=== PATIENT | female | born 1960 | race Caucasian/White ===

== ENCOUNTER → 2016-11-29 | Outpatient (REF) | payer OTHER ==
[~2016-11-29] MED LIST: COLA100C2 PO; DIOV80TA PO; GABAPOW41 PO; JANUVIA PO; METFORMIN PO; OMEPPOW18 PO; PERC5TAB8 PO; SIMV40TA2 OR; VITAMIN B12 PO
[2016-11-29 12:52] LABS: PERCENT SATURATION 10.8 % (13.2-37.4)
== END ==
LOC: M LAB REF 11:58
PROVIDERS: ATTEND Internal Medicine
DX: D64.9 Anemia, unspecified (principal)

== ENCOUNTER → 2017-12-29 | Outpatient (REF) | payer OTHER ==
[2017-12-29 14:47] LABS: IRON (FE) 52 UG/DL (50-170); PERCENT SATURATION 14.4 % (13.2-45.0); TOTAL IRON BINDING CAPACITY 361 UG/DL (250-450)
== END ==
LOC: M LAB REF 13:32
DX: D50.9 Iron deficiency anemia, unspecified (principal)

== ENCOUNTER → 2018-01-19 | Outpatient (CLI) | payer OTHER ==
[2018-01-19 12:36] LABS: ANION GAP 7 MEQ/L (8-16); BLOOD UREA NITROGEN 11 MG/DL (7-18); CALCIUM LEVEL 9.5 MG/DL (8.5-10.1); CARBON DIOXIDE LEVEL 28 MEQ/L (21-32); CHLORIDE LEVEL 105 MEQ/L (98-107); CREATININE FOR GFR 1.37 MG/DL (0.55-1.30); GLOMERULAR FILTRATION RATE 42.3 (>51); GLUCOSE, FASTING 119 MG/DL (70-100); POTASSIUM SERUM 4.5 MEQ/L (3.5-5.1); SODIUM LEVEL 140 MEQ/L (136-145)
== END ==
LOC: M LAB 11:16
DX: Z01.812 Encounter for preprocedural laboratory examination (principal); I10 Essential (primary) hypertension; E11.9 Type 2 diabetes mellitus without complications
CPT/HCPCS: 93005

== ENCOUNTER → 2018-05-21 | Outpatient (REF) | payer OTHER ==
[2018-05-21 11:39] LABS: TOTAL PROTEIN 6.8 GM/DL (6.4-8.2)
[2018-05-22 14:37] LABS: ALBUMIN 3.75 GM/DL (3.29-5.55); ALBUMIN % 55.2 % (55.8-66.1); ALPHA-1-GLOBULIN % 5.3 % (2.9-4.9); ALPHA-1-GLOBULINS 0.36 GM/DL (0.17-0.41); ALPHA-2-GLOBULINS 0.89 GM/DL (0.42-0.99); ALPHA-2-GLOBULINS % 13.1 % (7.1-11.8); BETA-1-GLOBULINS % 7.3 % (4.7-7.2); BETA-2-GLOBULINS 0.41 GM/DL (0.19-0.55); GAMMA GLOBULIN % 13.1 % (11.1-18.8); GAMMA GLOBULINS 0.89 GM/DL (0.65-1.58)
== END ==
LOC: M LAB REF 10:38
DX: D64.9 Anemia, unspecified (principal)
CPT/HCPCS: 84165

== ENCOUNTER → 2018-08-28 | Outpatient (REF) | payer OTHER ==
[2018-08-28 13:20] LABS: IRON (FE) 48 UG/DL (50-170); PERCENT SATURATION 13.6 % (13.2-45.0); TOTAL IRON BINDING CAPACITY 353 UG/DL (250-450)
== END ==
LOC: M LAB REF 12:17
DX: D64.9 Anemia, unspecified (principal)
CPT/HCPCS: 83550

== ENCOUNTER → 2019-05-03 | Outpatient (CLI) | payer OTHER ==
[2019-05-03 11:42] LABS: CALCIUM LEVEL 9.3 MG/DL (8.5-10.1); CREATININE FOR GFR 1.44 MG/DL (0.55-1.30); GLOMERULAR FILTRATION RATE 39.8 (>51); POTASSIUM SERUM 4.1 MEQ/L (3.5-5.1)
--- NOTE | 2019-05-04 19:49 | ECGEPIP ---
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
== END ==
LOC: M LAB 09:37
PROVIDERS: ATTEND Orthopaedic Surgery
DX: I10 Essential (primary) hypertension (principal)

== ENCOUNTER → 2019-08-31 | Outpatient (CLI) | payer OTHER ==
[2019-08-31 09:08] LABS: HEMATOCRIT 29.4 % (36.0-47.0); HEMOGLOBIN 9.4 g/dl (12.0-15.5); MEAN CORPUSCULAR HEMOGLOBIN 28.2 pg (27.0-33.0); MEAN CORPUSCULAR VOLUME 88.3 fl (80.0-96.0); PLATELET COUNT, AUTOMATED 257 10^3/uL (150-450); RED BLOOD COUNT 3.33 10^6/uL (4.00-5.40); WHITE BLOOD COUNT 7.2 10^3/uL (4.0-10.0)
--- NOTE | 2019-08-31 09:20 | REP ---
Clinical: Hypertension . Comparison: 08/01/2016 . Technique: PA and lateral. Findings: The mediastinum and cardiac silhouette are normal. The lung menendez are clear and without acute consolidation, effusion, or pneumothorax. The skeletal structures are intact and normal. Impression: 1. No acute cardiopulmonary process. Electronically Signed by Epifanio Dunaway MD 08/31/2019 09:12 A
[2019-08-31 09:28] LABS: INR 1.09; PROTHROMBIN TIME 13.8 SECONDS (11.8-14.0)
[2019-08-31 09:30] LABS: ERYTHROCYTE SEDIMENTATION RATE 48 mm/hr (0-30)
[2019-08-31 09:34] LABS: ALBUMIN 3.3 GM/DL (3.2-5.2); BILIRUBIN,TOTAL 0.3 MG/DL (0.2-1.0); CALCIUM LEVEL 9.1 MG/DL (8.5-10.1); CREATININE FOR GFR 1.5 MG/DL (0.55-1.30); POTASSIUM SERUM 4.3 MEQ/L (3.5-5.1); TOTAL PROTEIN 6.6 GM/DL (6.4-8.2)
--- NOTE | 2019-08-31 22:17 | ECGEPIP ---
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 NO MANIFESTATION OF PRIOR INFERIOR WALL INFARCT Electronically Signed on 08-31-2019 22:16:38 EST by Zev Padilla
== END ==
LOC: M LAB 08:31
PROVIDERS: ATTEND Orthopaedic Surgery
DX: I10 Essential (primary) hypertension (principal); Z01.818 Encounter for other preprocedural examination

== ENCOUNTER 2019-09-30 06:41 | Inpatient (IN) | payer OTHER ==
--- NOTE | 2019-09-27 14:29 | HPE ---
DATE OF ADMISSION: 09/30/2019 ATTENDING PHYSICIAN: Dr. Chepe Rao CHIEF COMPLAINT: Right knee pain and stiffness. HISTORY: This is a pleasant 59-year-old female patient with progressively worsening right knee pain and stiffness that has failed to improve with conservative treatment. She has been consented for a right total knee arthroplasty with Dr. Chepe Rao. ALLERGIES: - NARCOTICS MEDICAL PROBLEMS: Type 2 diabetes, morbid obesity, hypercholesterolemia, diabetic neuropathy, hypertension, anemia. CURRENT MEDICATIONS: Vitamin B12 1000 mcg one p.o. daily, vitamin D3 1000 units one p.o. daily, ferrous gluconate 324 mg one p.o. daily, atorvastatin calcium 40 mg one p.o. daily, gabapentin 300 mg one p.o. daily, Januvia 100 mg as directed, omeprazole 40 mg, Diovan/HCTZ 160/25 mg, metformin 500 mg. PAST SURGICAL HISTORY: Carpal tunnel release, bilateral spinal surgery 2010 with L5 decompression and fusion, tubal ligation, cholecystectomy, bilateral cataract removal. FAMILY HISTORY: Father myocardial infarction ([place]), mother cancer, unknown type. SOCIAL HISTORY: The patient denies smoking or alcohol use. REVIEW OF SYSTEMS: Denies fever, chills, chest pain, shortness breath, nausea, vomiting, diarrhea, recent upper respiratory or urinary tract infection symptoms. PHYSICAL EXAMINATION: Height 60 inches, weight 197.9, temperature 98.7, blood pressure 126/65, respirations 14, pulse 82. Normocephalic, atraumatic. Neck: Soft and nontender. Supple with no lymphadenopathy or jugular venous distention (JVD). Cardiac: S1-S2 auscultated. Lungs: Clear to auscultation bilaterally with no wheezes, rales or rhonchi. Abdomen: Soft, nontender. The right lower extremity is well perfused. Overlying skin is intact. ELECTROCARDIOGRAM (EKG): Normal sinus rhythm. CHEST X-RAY: No acute cardiopulmonary processes. LABS: Red count 3.3, white count 7.2, hemoglobin 9.4, hematocrit 29.4, ESR 48, BUN 18, creatinine 1.5, PT 13.8, INR 1.09. MEDICAL OPTIMIZATION: Per Dr. Valdes reviewed today on chart. IMPRESSION: Symptomatic right knee degenerative changes. PLAN: Consented for right total knee arthroplasty with Dr. Chepe Rao.
[~2019-09-30] VITALS: Ht 149.9 cm; Wt 90.2 kg
[2019-09-30] VITALS (8 sets, daily range): BP systolic 91–107; BP diastolic 46–59
[~2019-09-30 06:41] MED LIST changes: +ASPI81TA85 PO; +ATOR40TA75 PO; +B-12100010 PO; +CelecoXIB 400 MG CAP PO ONE; +FERR325T16 PO; +JANU100T PO; +LIDOCAINE 1% MDV 20ML VIAL SQ PRN; +LR 1,000 ML IV ONE; +METF500T13 PO; +NEUR300C PO; +OMEP40CA97 PO; +PERCOCET 5MG/325MG TAB PO ONE; +PREGABALIN 75 MG CAP(LYRICA) PO ONE; +VALS160T3 PO; +VITA2000 PO; +ceFAZolin SOD 1 GM in D5W MINI-BAG PLUS 50 ML IV ONE; +ceFAZolin SOD 2 GM in IV 1 EA IV ONE
[2019-09-30] MEDS ORDERED: BUPIVACAINE/EPIN 0.25% 30 ML VIAL As Ordered ONE (07:53)
[2019-09-30] MEDS ORDERED: TRANEXAMIC ACID 100 MG/ML 10ML VIAL As Ordered ONE (07:53)
[2019-09-30] MEDS ORDERED: ceFAZolin 1GM INJ (J0690 PER 500MG) As Ordered ONE (07:53)
[2019-09-30] MEDS ORDERED: BUPIVACAINE LIPOSOME/PF 1.3% 20ML VIAL (13.3MG/ML)(EXPAREL)(C9290 PER1MG) As Ordered ONE (07:54)
[2019-09-30] MEDS ORDERED: EPINEPHrine INJ 1 MG/ML 1ML VIAL As Ordered ONE (07:54)
[2019-09-30] MEDS ORDERED: propofoL 500 MG/50 ML VIAL As Ordered ONE (08:35)
[2019-09-30] MEDS ORDERED: LIDOCAINE 2% INJ 100 MG/5 ML SDV (FOR ANES.) As Ordered ONE (08:36)
[2019-09-30] MEDS ORDERED: ONDANSETRON 4MG/2ML VIAL (J2405) As Ordered ONE (08:36)
[2019-09-30] MEDS ORDERED: MIDAZOLAM INJ 2 MG/2 ML VIAL (J2250) As Ordered ONE ×2 (08:36→08:49)
[2019-09-30] MEDS ORDERED: SCOPOLAMINE 1MG TRANSDERMAL PATCH As Ordered ONE (08:47)
[2019-09-30] MEDS ORDERED: fentaNYL 100 MCG/2 ML INJECTION (J3010) As Ordered ONE (08:49)
[2019-09-30] MEDS ORDERED: SCOPOLAMINE 1MG TRANSDERMAL PATCH TOP ONE (09:00)
[2019-09-30] MEDS ORDERED: fentaNYL 100 MCG/2 ML INJECTION (J3010) IV ONE (10:00)
[2019-09-30] MEDS ORDERED: MIDAZOLAM INJ 2 MG/2 ML VIAL (J2250) IV ONE (10:00)
[2019-09-30] MEDS ORDERED: dexameTHASONE 10 MG/1 ML VIAL PRES.FREE (J1100) ONE (10:20)
[2019-09-30] MEDS ORDERED: EPINEPHrine INJ 1 MG/ML 1ML VIAL ONE (10:20)
[2019-09-30] MEDS ORDERED: ROPIvacaine 0.5% 30 ML INJECTION (J2795 PER 1MG) ONE (10:20)
[2019-09-30] MEDS ORDERED: BUPIVACAINE HCL 0.5% 10 ML VIAL As Ordered ONE (11:00)
[2019-09-30] MEDS ORDERED: PHENYLephrine HCL 500 MCG/5 ML (100MCG/ML) SYRINGE (J2370) As Ordered ONE (11:36)
[2019-09-30] MEDS ORDERED: ePHEDrine SULFATE 25 MG/5 ML(5MG/ML) SYRINGE As Ordered ONE (11:36)
[2019-09-30] MEDS ORDERED: propofoL 200 MG/20 ML VIAL As Ordered ONE (12:17)
[2019-09-30] MEDS ORDERED: ONDANSETRON 4MG/2ML VIAL (J2405) IV PRN (13:15)
[2019-09-30] MEDS ORDERED: LR 1,000 ML IV SCH (13:15)
[2019-09-30] MEDS ORDERED: fentaNYL 100 MCG/2 ML INJECTION (J3010) IV PRN (13:15)
[2019-09-30] MEDS ORDERED: oxyCODONE 5MG TAB PO PRN (13:15)
[2019-09-30] MEDS ORDERED: METOCLOPRAMIDE INJ 10MG/2ML VIAL (J2765) IV PRN (13:15)
[2019-09-30] MEDS ORDERED: HYDROMORPHONE HCL 0.5 MG/ 0.5 ML SYRINGE (J1170 PER 1) IV PRN ×2 (13:15→13:45)
[2019-09-30] MEDS ORDERED: ACETAMINOPHEN TAB 650MG DOSE (2X325MG) PO PRN (13:30)
[2019-09-30] MEDS ORDERED: PERCOCET 5MG/325MG TAB PO PRN (13:30)
[2019-09-30] MEDS ORDERED: PROMETHAZINE INJ 25 MG/ML VIAL (J2550) IV PRN (13:30)
[2019-09-30] MEDS ORDERED: FLEET ENEMA PR PRN (13:30)
[2019-09-30] MEDS ORDERED: ONDANSETRON 4 MG TAB (S0181) PO PRN (13:45)
[2019-09-30] MEDS ORDERED: DEXTROSE 50% 50 ML SYRINGE IV PRN (14:00)
[2019-09-30] MEDS ORDERED: GLUCOSE 4 GM CHEW TABLET PO PRN (14:00)
[2019-09-30] MEDS ORDERED: GLUCAGON FOR INJ 1 MG VIAL (J1610) SC PRN (14:00)
--- NOTE | 2019-09-30 14:02 | REP ---
Right knee series: Two views. History: Postop evaluation. No comparison radiographs. Findings: AP and cross-table lateral views of the right knee demonstrate right knee arthroplasty components in good position. There is periarticular soft tissue emphysema and swelling. Vascular calcifications noted. Impression: Status post right knee arthroplasty. Electronically Signed by Aric Fernandes MD 09/30/2019 01:54 P
--- NOTE | 2019-09-30 14:18 | CR ---
DATE OF CONSULTATION: 09/30/2019 Pia Chris was seen in the postanesthesia care unit (PACU) after orthopedic procedure. She had a preoperative evaluation done by Dr. Valdes which was reviewed. She has a medical history significant for type 2 diabetes under good control. Hemoglobin A1c on 04/19/2019 was 7%. She has chronic kidney disease which is Stage 3, hyperlipidemia, peripheral neuropathy, hypertensive heart disease, and mildly elevated BMI. She currently has no chest pain, shortness of breath, palpitations, or dyspnea on exertion. HOME MEDICATIONS: - B12 1000 mcg daily - diclofenac gel - vitamin D - ferrous gluconate 324 mg daily - atorvastatin 40 mg daily - gabapentin 300 mg, frequency not specified. - Januvia 100 mg daily - omeprazole 40 mg daily - Diovan/HCT 160/25 daily - metformin 500 mg, frequency not specified PHYSICAL EXAMINATION: Vital Signs: Per flow sheet. Pupils equal round. Tympanic membranes (TMs) norrmal. Oropharynx benign. Neck: No masses. Lungs: Clear. Heart: Regular rate and rhythm. Without murmur. Abdomen: Soft. Nontender. No masses. No peripheral edema. IMPRESSION: 1. Type 2 diabetes. Sliding scale of insulin with coverage until her oral intake is assured and then she could be started on some basal insulin plus sliding scale. Anticipate discharge on metformin. Followup labs ordered to assure renal function postoperatively. 2. Hypertensive heart disease. Hold her Diovan/HCT until postop blood pressure is established. 3. Hyperlipidemia. Continue her atorvastatin 40 mg daily. 4. History of gastroesophageal reflux disease (GERD). Continue omeprazole 40 mg daily. I will be rounding on her for the hospitalist tomorrow. Will restart medicines as necessary at that time.
[2019-09-30] MEDS: PERCOCET 5MG/325MG TAB PO PRN (15:12)
[2019-09-30] MEDS: HumaLOG INSULIN (NovoLOG) PER UNIT SC SCH ×2 (17:53→21:00)
[2019-09-30] MEDS: ceFAZolin SOD 2 GM in IV 1 EA IV SCH (17:54)
[2019-09-30] MEDS ORDERED: metFORMIN (GLUCOPHAGE) 500 MG TAB PO SCH (18:00)
[2019-09-30] MEDS: GABAPENTIN 300 MG CAP PO SCH (21:14)
[2019-09-30] MEDS: ATORVASTATIN 20 MG TAB PO SCH (21:14)
[2019-09-30] MEDS: METAMUCIL (PSYLLIUM) PACKET PO SCH (21:14)
[2019-10-01] VITALS (8 sets, daily range): BP systolic 94–146; BP diastolic 45–72
[2019-10-01] MEDS: ceFAZolin SOD 2 GM in IV 1 EA IV SCH (02:17)
[2019-10-01] MEDS: ACETAMINOPHEN TAB 650MG DOSE (2X325MG) PO PRN ×2 (02:17→20:41)
[2019-10-01] MEDS ORDERED: XARE10TA PO (06:20)
[2019-10-01] MEDS ORDERED: PERC5TAB12 PO (06:20)
[2019-10-01 07:03] LABS: HEMATOCRIT 21.4 % (36.0-47.0); MEAN CORPUSCULAR HEMOGLOBIN 27.3 pg (27.0-33.0); MEAN CORPUSCULAR HGB CONC 31.3 g/dl (32.0-36.5); MEAN CORPUSCULAR VOLUME 87.3 fl (80.0-96.0); PLATELET COUNT, AUTOMATED 207 10^3/uL (150-450); RED BLOOD COUNT 2.45 10^6/uL (4.00-5.40)
[2019-10-01 07:07] LABS: HEMOGLOBIN 6.7 g/dl (12.0-15.5)
[2019-10-01 07:28] LABS: CREATININE FOR GFR 1.68 MG/DL (0.55-1.30)
[2019-10-01 07:29] LABS: CALCIUM LEVEL 8.3 MG/DL (8.5-10.1); GLOMERULAR FILTRATION RATE 33.2 (>51); POTASSIUM SERUM 4.1 MEQ/L (3.5-5.1)
[2019-10-01] MEDS ORDERED: metFORMIN (GLUCOPHAGE) 1000 MG TABLET PO SCH (08:00)
[2019-10-01] MEDS: OMEPRAZOLE 20 MG CAP PO SCH (08:02)
[2019-10-01] MEDS: METAMUCIL (PSYLLIUM) PACKET PO SCH ×2 (08:03→20:41)
[2019-10-01] MEDS: MIRALAX *UNIT DOSE* 17GM PACKET PO SCH (08:03)
[2019-10-01] MEDS: HumaLOG INSULIN (NovoLOG) PER UNIT SC SCH ×4 (08:03→20:44)
[2019-10-01] MEDS: PERCOCET 5MG/325MG TAB PO PRN (08:04)
--- NOTE | 2019-10-01 08:57 | IPN ---
DATE: 10/01/219 Pia is seen while rounding for the hospitalists. She is anemic, hypotensive and her renal function is declined. She is not having any chest pain, shortness of breath, palpitations, and her pain is under good control. PHYSICAL EXAMINATION: 105/45, pulse of 89, 97.8 degrees. 99% oxygen saturation on 1 liter. General appearance: She looks pale. Lungs: Clear. Heart: Regular rhythm. Abdomen: Soft, nontender. Extremities: No peripheral edema. LABS: Hemoglobin 6.7. It was 9.4 preoperatively. Creatinine is up to 1.68. Baseline was 1.44. Blood sugars are below 200. IMPRESSION: 1. Anemia postoperatively secondary to acute blood loss. She will be transfused a unit of packed red blood cells. Consent has already been obtained. She agrees to transfusion. CBC ordered for tomorrow. 2. Hypotension. Hold her antihypertensives. Restore blood volume with the transfusion. Cautiously reintroduce antihypertensives possibly tomorrow. 3. Diabetes. Her renal function has declined. We are stopping her metformin. Continue sliding scale insulin coverage. 4. Chronic kidney disease. Renal function is slightly down from baseline. I am holding her metformin. Hopefully restoring blood volume with the transfusion and holding her antihypertensives will restore her renal function. Labs have been ordered for tomorrow. Patient is not medically stable for discharge today. This has been discussed with orthopedics.
[2019-10-01] MEDS ORDERED: VALSARTAN 80 MG TAB (DIOVAN) PO SCH (09:00)
[2019-10-01] MEDS ORDERED: FLUBLOK(EGG FREE)(QUAD)INFLUENZA VACC 0.5ML SYRINGE (90682)18YRS&OLDER IM ONE (09:00)
[2019-10-01] MEDS ORDERED: hydroCHLOROthiazide 25 MG TAB PO SCH (09:00)
[2019-10-01] MEDS: GABAPENTIN 300 MG CAP PO SCH ×2 (09:16→20:41)
[2019-10-01] MEDS ORDERED: RIVAROXABAN 10 MG TAB (XARELTO) PO SCH (18:00)
[2019-10-01 20:13] LABS: HEMATOCRIT 27.2 % (36.0-47.0); HEMOGLOBIN 8.8 g/dl (12.0-15.5); MEAN CORPUSCULAR HEMOGLOBIN 28.1 pg (27.0-33.0); MEAN CORPUSCULAR HGB CONC 32.4 g/dl (32.0-36.5); MEAN CORPUSCULAR VOLUME 86.9 fl (80.0-96.0); PLATELET COUNT, AUTOMATED 178 10^3/uL (150-450); RED BLOOD COUNT 3.13 10^6/uL (4.00-5.40); WHITE BLOOD COUNT 11.3 10^3/uL (4.0-10.0)
[2019-10-01 20:31] LABS: CALCIUM LEVEL 8.8 MG/DL (8.5-10.1); CREATININE FOR GFR 1.67 MG/DL (0.55-1.30); GLOMERULAR FILTRATION RATE 33.4 (>51); POTASSIUM SERUM 3.8 MEQ/L (3.5-5.1)
[2019-10-01] MEDS: ATORVASTATIN 20 MG TAB PO SCH (20:41)
[2019-10-02 06:00] VITALS: BP 145/70
[2019-10-02] MEDS: HumaLOG INSULIN (NovoLOG) PER UNIT SC SCH (07:30)
[2019-10-02 08:25] LABS: CALCIUM LEVEL 8.6 MG/DL (8.5-10.1); CREATININE FOR GFR 1.44 MG/DL (0.55-1.30); GLOMERULAR FILTRATION RATE 39.7 (>51); POTASSIUM SERUM 4.3 MEQ/L (3.5-5.1)
[2019-10-02] MEDS: OMEPRAZOLE 20 MG CAP PO SCH (08:56)
[2019-10-02] MEDS: GABAPENTIN 300 MG CAP PO SCH (08:56)
[2019-10-02] MEDS: ACETAMINOPHEN TAB 650MG DOSE (2X325MG) PO PRN (08:56)
[2019-10-02] MEDS: METAMUCIL (PSYLLIUM) PACKET PO SCH (08:57)
[2019-10-02] MEDS: MIRALAX *UNIT DOSE* 17GM PACKET PO SCH (08:58)
[2019-10-02 09:16] LABS: HEMATOCRIT 24.5 % (36.0-47.0); HEMOGLOBIN 7.9 g/dl (12.0-15.5); MEAN CORPUSCULAR HEMOGLOBIN 27.7 pg (27.0-33.0); MEAN CORPUSCULAR HGB CONC 32.2 g/dl (32.0-36.5); PLATELET COUNT, AUTOMATED 199 10^3/uL (150-450); RED BLOOD COUNT 2.85 10^6/uL (4.00-5.40); WHITE BLOOD COUNT 8.6 10^3/uL (4.0-10.0)
--- NOTE | 2019-10-02 18:45 | IPNPDOC ---
Text Note Date of Service The patient was seen on 10/02/19. NOTE Subjective: -Briefly met Ms. Chris while she was being evaluated by PT for safe home discharge this morning -Reports that she feels well and is ready to get home today -No chest pain, SOB, dizziness, pain is well controlled, afebrile Objective: General appearance: NAD HEENT: NCAT, PERRLA, EOMI, MMM Lungs: CTAB Heart: RRR, no mrg Abdomen: Normoactive, soft, NTND Extremities: No peripheral edema, WWP LABS: Hemoglobin 7.9. Creatinine isdown to 1.44 whic is her baseline. Normoglycemic IMPRESSION: 1. Anemia postoperatively secondary to acute blood loss. -s/p 1u pRBCs , with CBC showing an appropriate bump after transfusion 2. Hypotension. Resolved -Were restarted by surgery team at time of discharge today 3. Diabetes. Her renal function improved back to baseline, was restarted on her metformin and stopped SSI at discharge 4. Chronic kidney disease. Renal function is now at baseline. -Restarted metformin for discharge home Patient now medically stable for discharge today and is being discharged home by ortho team on Xarelto DVT ppx and percocet for pain PRN. VS,Fishbone, I+O VS, Fishbone, I+O Laboratory Tests 10/01/19 19:57 10/02/19 07:34 10/02/19 08:50 Vital Signs Date Time Temp Pulse Resp B/P (MAP) Pulse Ox O2 Delivery O2 Flow Rate FiO2 10/02/19 06:00 99.2 89 20 145/70 (95) 98 Room Air 10/01/19 09:30 1.0 I&O- Last 24 Hours up to 6 AM 10/02/19 06:00 Intake Total 2640 ml Output Total 1500 ml Balance 1140 ml ARAM MINA MD Oct 02, 2019 18:45
--- NOTE | 2019-10-04 17:00 | DSES ---
DATE OF ADMISSION: 09/30/2019 DATE OF DISCHARGE: 10/02/2019 ATTENDING PHYSICIAN: Dr. Chepe Rao ADMISSION DIAGNOSIS: Right knee pain and stiffness. OTHER DIAGNOSES: Type 2 diabetes. Morbid obesity. Hypercholesterolemia. Diabetic neuropathy. Hypertension. Anemia. DISCHARGE DIAGNOSIS: Osteoarthritis right knee, status post right total knee arthroplasty. OPERATION PERFORMED: Right total knee arthroplasty. HISTORY: This is a 59-year-old female patient with progressively worsening right knee pain and stiffness. She failed to improve with conservative management and was admitted for elective knee replacement on the right side. HOSPITAL COURSE: The patient was admitted on the day of surgery and underwent a right total knee arthroplasty, which was uneventful. She did well in the postoperative period, and her hospital course was without complications. She was up with physical therapy per their protocol, weightbearing as tolerated on the right lower extremity. Pain was controlled on the day of discharge. She will resume her preoperative medications and diet along with oral pain medications for pain control. She will follow deep vein thrombosis (DVT) prophylaxis per protocol. Instructions were given to include but not limited to wound monitoring and activity limitations. She will follow up in our office in 10-14 days for surgical followup. Please refer to the medical record for further details.
--- NOTE | 2019-10-12 08:04 | RO ---
DATE OF PROCEDURE: 09/30/2019 PREOPERATIVE DIAGNOSIS: Right knee osteoarthritis. POSTOPERATIVE DIAGNOSIS: Right knee osteoarthritis. PROCEDURE PERFORMED: Right total knee replacement. SURGEON: Dr. Chepe Rao BLOGS MANAGER: GRACIE Mosquera ANESTHESIA: Spinal with block. SPECIMENS: Include knee contents. ESTIMATED BLOOD LOSS: Less than 100 mL, replaced with crystalloid. No drains. No complications. COMPONENTS USED: Include the Attune knee system, tibial base rotating platform, size 4, cemented. Attune patella medialized dome, 32 mm. Attune tibial insert rotating platform, size 4, 6 mm. Attune femoral posterior stabilized, size 4 right cemented knee. I utilized antibiotic/tobramycin full-dose bone cement because of the patient's diabetic history. INDICATIONS: Progressive discomfort in the right knee. Radiographic evidence of right knee osteoarthritis. Patient elects for operative intervention. CONSENT: Reviewed in detail with the patient, including a sarah discussion of the pathology involved, the procedure proposed, alternatives including doing nothing, risks including, but not limited to, pain, failure, infection, bleeding, blood loss, incomplete relief of symptoms, blood clots, need for additional surgery, and other issues. The patient agrees to proceed. OPERATIVE COURSE: Identified in the holding area. Site and side verified. Block was administered by anesthesia. She was brought to the operating room. Spinal was administered by anesthesia. She was positioned in the standard fashion for right knee replacement. Tourniquet was utilized. Tourniquet time was less than 90 minutes. Next, she was sterilely prepped and draped in the usual fashion. Next, the leg was elevated; gravity exsanguination was accomplished. Next, line of the incision outlined with marking pen. 0.25% Marcaine with epinephrine instilled. Next, incision made with #10 blade, developed down through skin and subcuticular tissues to the extensor mechanism. A standard midline medial parapatellar arthrotomy was accomplished. Patella was everted. Medial soft tissue was released because of some varus deformity. Infrapatellar fat pad was sacrificed, and extensor mechanism was protected using a Meyerding as this was accomplished. Anterior femur was cleared of soft tissue to facilitate sizing. Knee was placed in flexed position. Femoral canal was entered using the canal entering reamer. Canal was evacuated using suction. The distal femoral guide was installed 3 degrees valgus, pinned into place. I placed the Hohmann retractors. Ms. Blackburn utilized the oscillating saw to make the distal femoral cut. I then utilized the AP sizing guide to size for the size 4 femoral component. This was pinned into place. Ms. Blackburn held the retractors while I made the anterior, posterior, followed by chamfer cuts. Next, the meniscus tissues had been released anteriorly. Next, the tibial extramedullary alignment guide was then installed. Tibial slotted guide was then installed. We took 4 mm off the bad side, which was the medial side. Next, slope neutral. The tibial jig was pinned into place. A drop benny was utilized to verify appropriate neutral alignment on the tibia and appropriate slope. Posterior retractor was secured by Anthony Freedman. The tibial cut was made by myself with the oscillating saw. The proximal tibial surface was removed using a Joellen retractor and the hot knife. I also recessed the posterior cruciate. Next, once this was accomplished, the notch cutting guide was applied to the distal femur. It was pinned into place. Oscillating saw was utilized by myself to make the sagittal cuts, and I also made the distal cut using the narrow blade. Removed the bone from the femoral notch. I removed the cutting guide. Next, we then utilized sizing blocks to predict a size 5 or 6 spacer component in both flexion and extension. Next, once this was accomplished, we then distracted using lamina spreaders. I removed the medial and lateral meniscal remnants. I verified there was no posterior osteophyte formation using a curved osteotome. Next, trial femoral and tibial components were installed, including a trial 5 spacer. Knee was placed through a range of motion. I felt that the trial 6 spacer fit better, so we selected the size 6 nontrial. Next the knee was placed in extension. The posterior patella was exposed. Ms. Blackburn held the patellar with the Joellen retractor and the piercing towel clamps. I made the posterior patella cut. I sized for a size 32 button, which seemed to fit appropriately. I drilled the 32 button with the step drill. Next, the knee was placed through a range of motion. Alignment including patellofemoral alignment seemed to be correct. Next, at this stage, the trial components were removed. Ms. Blackburn stepped to the back table to prepare bone cement. I did instill Exparel solution in the posterior capsule and around the knee subcuticular tissues and capsular tissues for perioperative pain control. Next, I utilized pulse lavage to prepare the exposed bone of the femur, the tibia, and the patella. Next, posterior femoral condyles and the nontrial femoral component were coated with bone cement. Next, Ms. Blackburn then assisted by positioning with retractors, and I cemented the tibial component into place. Excess cement was removed with curettes. Next, femoral component was then cemented into place and again excess cement removed using curettes. Next, the tibial tray protection sleeve was removed. The nontrial rotating platform 6 polyethylene spacer was installed by myself. The knee was reduced by myself and placed in extension over a bump. We inspected for any loose bone cement, and a small amount was removed using curettes. Next, patella was everted. Nontrial patella was cemented into place. Patella clamp was installed until the cement had cured. Excess cement cleared using curettes again. Next, while this was accomplished, we utilized pulse lavage for final lavage of the knee, also utilized tranexamic acid (TXA) solution, which was allowed stand while the cement hardened. Next, once the cement was the appropriate consistency, we then placed the knee through a range of motion. Alignment appeared to be good. I was able to get the knee easily fully extended, and the knee was stable. Patellofemoral joint was stable. Next, the arthrotomy was closed with interrupted Vicryl stitch as well as a running Stratafix #1 stitch by myself and Ms. Blackburn. Next, deep dermis was closed with interrupted stitch, and a Prineo dressing was applied. The tourniquet was deflated. Next, the patient was able to be moved to the hospital bed and moved to the recovery room in good condition. Recovery room imaging studies of the knee reflected excellent alignment of the right knee replacement. For further details, please refer to the medical record. I was present and participated in all sanchez portions of the procedure. Ms. Blackburn was present and participated in the entirety of this case as well.
== END 2019-10-02 10:50 | disposition home or self-care (01) | DRG 470 ==
LOC: M OR 06:41 → M MS5PR 14:01
PROVIDERS: ADMIT Orthopaedic Surgery; ATTEND Orthopaedic Surgery
PROC: 0SRC0J9 Replacement of Right Knee Joint with Synthetic Substitute, Cemented, Open Approach (ICD-10-PCS; principal; 2019-09-30 10:30)
PROC: 30233N1 Transfusion of Nonautologous Red Blood Cells into Peripheral Vein, Percutaneous Approach (ICD-10-PCS; 2019-10-01)
DX: M17.11 Unilateral primary osteoarthritis, right knee (principal); D62 Acute posthemorrhagic anemia; Z68.41 Body mass index [BMI] 40.0-44.9, adult; E11.51 Type 2 diabetes mellitus with diabetic peripheral angiopathy without gangrene; E66.01 Morbid (severe) obesity due to excess calories; I12.9 Hypertensive chronic kidney disease with stage 1 through stage 4 chronic kidney disease, or unspecified chronic kidney disease; E78.00 Pure hypercholesterolemia, unspecified; Z88.5 Allergy status to narcotic agent; Z79.899 Other long term (current) drug therapy; N18.3 Chronic kidney disease, stage 3 (moderate); E78.5 Hyperlipidemia, unspecified; K21.9 Gastro-esophageal reflux disease without esophagitis; I95.81 Postprocedural hypotension; E11.21 Type 2 diabetes mellitus with diabetic nephropathy; E11.3293 Type 2 diabetes mellitus with mild nonproliferative diabetic retinopathy without macular edema, bilateral; D63.1 Anemia in chronic kidney disease

== ENCOUNTER → 2019-11-06 | Outpatient (REF) | payer OTHER ==
[~2019-11-06] MED LIST changes: -CelecoXIB 400 MG CAP PO ONE; -LIDOCAINE 1% MDV 20ML VIAL SQ PRN; -LR 1,000 ML IV ONE; +PERC5TAB12 PO; -PERCOCET 5MG/325MG TAB PO ONE; -PREGABALIN 75 MG CAP(LYRICA) PO ONE; +XARE10TA PO; -ceFAZolin SOD 1 GM in D5W MINI-BAG PLUS 50 ML IV ONE; -ceFAZolin SOD 2 GM in IV 1 EA IV ONE
[2019-11-06 18:14] LABS: PERCENT SATURATION 9.8 % (13.2-45.0)
== END ==
LOC: M LAB REF 17:10
PROVIDERS: ATTEND Internal Medicine
DX: N18.9 Chronic kidney disease, unspecified (principal); D63.1 Anemia in chronic kidney disease

== ENCOUNTER → 2022-05-18 | Outpatient (REF) | payer OTHER ==
[~2022-05-18] MED LIST changes: -ASPI81TA85 PO; +ASPI81TA86 PO; +FERR324T21 PO; -FERR325T16 PO; +OMEP40CA4 PO; -OMEP40CA97 PO; -VITA2000 PO; +VITA200031 PO
[2022-05-18 18:47] LABS: PERCENT SATURATION 8.1 % (13.2-45.0)
== END ==
LOC: M LAB REF 16:13
PROVIDERS: ATTEND Internal Medicine
DX: D64.9 Anemia, unspecified (principal); I12.9 Hypertensive chronic kidney disease with stage 1 through stage 4 chronic kidney disease, or unspecified chronic kidney disease

== ENCOUNTER → 2022-11-14 | Outpatient (REF) | payer OTHER ==
[2022-11-14 17:39] LABS: PERCENT SATURATION 9.6 % (13.2-45.0)
== END ==
LOC: M LAB REF 16:08
PROVIDERS: ATTEND Internal Medicine
DX: D64.9 Anemia, unspecified (principal); D63.1 Anemia in chronic kidney disease

== ENCOUNTER → 2024-03-12 | Outpatient (REF) | payer OTHER ==
[2024-03-13 17:37] LABS: IRON (FE) 26 UG/DL (50-170); TOTAL IRON BINDING CAPACITY 373 UG/DL (250-425)
[2024-03-13 17:39] LABS: FOLATE > 24.0 NG/ML (>5.4)
[2024-03-13 17:40] LABS: VITAMIN B12 LEVEL 211 PG/ML (211-911)
== END ==
LOC: M LAB REF 16:24
PROVIDERS: ATTEND Internal Medicine
DX: N18.9 Chronic kidney disease, unspecified (principal); D63.1 Anemia in chronic kidney disease

== ENCOUNTER 2024-05-03 08:05 | Outpatient (CLI) | payer OTHER ==
[~2024-05-03] VITALS: Ht 152.4 cm; Wt 89.0 kg
[~2024-05-03 08:05] MED LIST changes: +ALBUTEROL SULFATE 2.5MG/0.5ML INH NEB SOLN INH PRN; +EPINEPHrine INJ 1 MG/ML 1ML AMP IM PRN; +NS 1,000 ML IV SCH; +diphenhydrAMINE 50MG/ML VIAL IV PRN; +methylPREDNISolone 125MG 2ML VIAL IV PRN
[2024-05-03 08:20] VITALS: BP 138/63; O2SAT 100
[2024-05-03] MEDS: diphenhydrAMINE 25MG PO PRIOR TO INFUSION PO ONE (08:24)
[2024-05-03] MEDS: ACETAMINOPHEN 650MG PO PRIOR TO INFUSION PO ONE (08:24)
[2024-05-03] MEDS: IRON SUCROSE 500 MG in NS 250 ML OVER 4 HRS IV ONE (08:57)
[2024-05-03] MEDS ORDERED: FOLI1TAB11 PO (09:16)
[2024-05-03] MEDS ORDERED: NESI25TA PO (09:16)
[2024-05-03] MEDS ORDERED: LOSA100T46 PO (09:16)
[2024-05-03] MEDS ORDERED: METF-839 PO (09:16)
[2024-05-03 10:00] VITALS: BP 133/57; O2SAT 97
[2024-05-03 11:00] VITALS: BP 138/68; O2SAT 99
[2024-05-03 13:30] VITALS: BP 148/68; O2SAT 98
== END 2024-05-03 13:30 | disposition home or self-care (01) ==
LOC: M INFU 08:05
PROVIDERS: ATTEND Internal Medicine
DX: N18.9 Chronic kidney disease, unspecified (principal); D63.1 Anemia in chronic kidney disease; Z88.5 Allergy status to narcotic agent; Z91.048 Other nonmedicinal substance allergy status
CPT/HCPCS: 96365; 96366; J1756

== ENCOUNTER → 2024-09-20 | Outpatient (REF) | payer OTHER ==
[~2024-09-20] MED LIST changes: -ALBUTEROL SULFATE 2.5MG/0.5ML INH NEB SOLN INH PRN; -EPINEPHrine INJ 1 MG/ML 1ML AMP IM PRN; +FOLI1TAB11 PO; +LOSA100T46 PO; +METF-839 PO; +NESI25TA PO; -NS 1,000 ML IV SCH; -diphenhydrAMINE 50MG/ML VIAL IV PRN; -methylPREDNISolone 125MG 2ML VIAL IV PRN
[2024-09-20 17:06] LABS: URIC ACID 5.2 MG/DL (3.1-7.8)
[2024-09-20 17:08] LABS: PHOSPHORUS LEVEL 3.6 MG/DL (2.4-5.1); PTH INTACT 143.5 PG/ML (18.5-88.0)
[2024-09-20 17:09] LABS: PERCENT SATURATION 19.5 % (13.2-45.0)
== END ==
LOC: M LAB REF 16:32
PROVIDERS: ATTEND Internal Medicine
DX: D50.9 Iron deficiency anemia, unspecified (principal); N18.30 Chronic kidney disease, stage 3 unspecified

== ENCOUNTER → 2025-01-21 | Outpatient (REF) | payer OTHER ==
[2025-01-21 13:05] LABS: PERCENT SATURATION 15.4 % (13.2-45.0)
== END ==
LOC: M LAB REF 12:29
PROVIDERS: ATTEND Internal Medicine
DX: D50.9 Iron deficiency anemia, unspecified (principal); D63.1 Anemia in chronic kidney disease; N18.30 Chronic kidney disease, stage 3 unspecified; D51.9 Vitamin B12 deficiency anemia, unspecified

== ENCOUNTER → 2025-05-26 | Outpatient (REF) | payer OTHER ==
[2025-05-26 18:58] LABS: IRON (FE) 48.0 UG/DL (50-170); PERCENT SATURATION 17.5 % (13.2-45.0); PHOSPHORUS LEVEL 3.3 MG/DL (2.4-5.1)
[2025-05-26 19:00] LABS: VITAMIN B12 LEVEL 224.0 PG/ML (211-911)
[2025-05-26 20:08] LABS: PTH INTACT 174.8 PG/ML (18.5-88.0)
== END ==
LOC: M LAB REF 17:23
PROVIDERS: ATTEND Internal Medicine
DX: N18.30 Chronic kidney disease, stage 3 unspecified (principal); D50.9 Iron deficiency anemia, unspecified